=== PATIENT | male | born 1940 | race Caucasian/White ===

== ENCOUNTER 2017-02-24 10:17 | Day surgery (SDC) | payer MEDICARE ==
--- NOTE | 2017-02-05 07:03 | HP ---
AMENDED REPORT NOW INCLUDES COSIGNER DESIGNATION - ESIGNED BEFORE ADJUSTMENT CC: Dr. Caitlyn Gao; Dr. Jemal Beauchamp * ADMISSION HISTORY AND PHYSICAL: DATE OF ADMISSION: 02/24/17 ATTENDING SURGEON: Dr. Chris Mcnamara * (DICTATED BY DANIEL MARAVILLA) CHIEF COMPLAINT: Right inguinal hernia. HISTORY OF PRESENT ILLNESS: This is a 76-year-old male with a 4-month history of gradually increasing right groin pain and swelling. He notes increased symptoms particularly after working out and/or playing racStormpath, which he does regularly each week. He has noted some swelling. He has not had any symptoms to suggest incarceration or strangulation. He has not had any particular GI or complaints other than his baseline. He had undergone a prior open left inguinal herniorrhaphy around 2011. He was seen in the office by Dr. Mcnamara on 12/10/16, at which time exam confirmed the presence of a mildly tender reducible right inguinal hernia. No recurrence noted on the left. Dr. Mcnamara discussed with him the indications for surgery; the risks, benefits, and alternatives. I have reviewed with him the expected perioperative course. He is on Xarelto for paroxysmal atrial fibrillation. He has a mild increase in serum creatinine and therefore, his last dose of Xarelto will be on 02/22/17. He would like to proceed as scheduled with laparoscopic repair of right inguinal hernia with mesh. PAST MEDICAL HISTORY: Hypertension, paroxysmal atrial fibrillation, lumbar spinal stenosis. He has had one or more episodes of syncope related to increased vagal tone, related to constipation. He has had no recent events. He does see Dr. Trevino periodically, most recent visit in July of this year. PAST SURGICAL HISTORY: Previous surgeries include left hip replacement and right knee replacement. The hip replacement was complicated by postoperative dislocation as well as the aforementioned syncopal episode. CURRENT MEDICATIONS: 1. Xarelto 20 mg once daily (last dose 02/22/17). 2. Cardizem 30 mg 2 tablets q.a.m., 1 tablet q.p.m. 3. Lisinopril 10 mg daily. 4. Vitamin B12 1000 mcg daily. 5. Extra strength Tylenol p.r.n. 6. stool softener as needed DRUG ALLERGIES: None known. FAMILY HISTORY: Negative for anesthesia problems, bleeding, or clotting disorder. SOCIAL HISTORY: The patient lives with his partner. He is a retired teacher. He continues to smoke 2 to 3 cigarettes per day and also uses nicotine gum. He is not interested in quitting at the present time. 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 He denies other recreational drug use. REVIEW OF SYSTEMS: General: No recent constitutional symptoms or acute illnesses. His weight has been relatively stable. Cardiovascular: He does note palpitations when he is in AFib, sometimes with tachycardia. This typically occurs in the evenings. No other new problems to report. No history of SC or angina. Respiratory: Smoking history as noted. No chronic cough or shortness of breath. GI: No problems reported. His last colonoscopy was approximately 10 years ago. He has discussed colorectal cancer screening with his PCP. : He sees Dr. Beauchamp once yearly. He does have some prostate enlargement and nocturia. Mild elevation in serum creatinine on recent measure with GFR estimated at around 49. Endocrine: No diabetes or thyroid dysfunction. PHYSICAL EXAMINATION GENERAL: Well-nourished, mildly obese male, in no acute distress. VITAL SIGNS: Height 5 feet 9 inches, weight 190, blood pressure 130/80, pulse 68, respirations 18. HEENT: Pupils are equal, round, and reactive. EOMs intact. No conjunctival pallor. Oropharynx: Teeth in good repair. No intraoral lesions. NECK: No lymphadenopathy, thyromegaly, or masses. LUNGS: Clear to auscultation. No rales or wheezes. HEART: Regular rate and rhythm. No murmur appreciated. ABDOMEN: Soft, nontender to palpation. No palpable masses or organomegaly other than the right groin hernia as per Dr. Mcnamara' exam. RECTAL: Not done. BACK: No spinous process or CVA tenderness. EXTREMITIES: No edema. NEUROLOGICAL: Grossly intact. SKIN: Warm and dry. No suspicious rashes or lesions noted. IMPRESSION: Right inguinal hernia. PLAN: Laparoscopic repair of right inguinal hernia with mesh. DANIEL MARAVILLA [id number]/[facility] #: [id number] [facility] CENTERJass
[~2017-02-24 10:17] MED LIST: Acetaminophen TAB* 325 MG PO ONE; Buffered Lidocaine 0.9% SYRIN* 5 ML/SYR SYRINGE INTRADERM ONE; Dexamethasone IV* 4 MG/ML 1 ML (4 MG) IV SLOW PU ONE; Famotidine IV* 10 MG/ML 2 ML (20 mg) IV ONE
[2017-02-24] MEDS ORDERED: Dexamethasone IV* 4 MG/ML 1 ML (4 MG) ONE (10:26)
[2017-02-24] MEDS ORDERED: Famotidine IV* 10 MG/ML 2 ML (20 mg) ONE (10:26)
[2017-02-24] MEDS ORDERED: ceFAZolin 2 GM PREMIX (*) 2 GM/50 ML BAG IVPB ONE (10:27)
[2017-02-24] MEDS ORDERED: Buffered Lidocaine 0.9% SYRIN* 5 ML/SYR SYRINGE ONE (10:27)
[2017-02-24] MEDS ORDERED: Acetaminophen TAB* 325 MG ONE (10:27)
[2017-02-24] MEDS ORDERED: Propofol* 10 MG/ML 20 ML BTL IV PUSH ONE (11:49)
[2017-02-24] MEDS ORDERED: Midazolam* 1 MG/ML 2 ML VIAL (2 MG) ONE (11:49)
[2017-02-24] MEDS ORDERED: fentaNYL* 50 MCG/ML 2 ML VIAL (100 MCG VIAL) ONE (11:49)
[2017-02-24] MEDS ORDERED: Cisatracurium* 2 MG/ML MDV 5 ML ONE (11:52)
[2017-02-24] MEDS ORDERED: Ondansetron INJ* 2 MG/ML VIAL ONE (13:22)
[2017-02-24] MEDS ORDERED: EPHEDrine (Pressors)* 50 MG/ML VIAL ONE (13:22)
[2017-02-24] MEDS ORDERED: Phenylephrine IV* 40 MCG/ML 10 ML SYRINGE ONE (13:22)
[2017-02-24] MEDS ORDERED: Ketorolac INJ* 30 MG/ML 1 ML VIAL ONE (13:22)
[2017-02-24] MEDS ORDERED: HYDROcodone/ACETAMIN 5-325 MG* 1 TAB PO PRN (13:28)
[2017-02-24] MEDS ORDERED: HYDROmorphone INJ* 1 MG/ML CARPUJECT SYRINGE IV PRN (13:28)
[2017-02-24] MEDS ORDERED: Ondansetron INJ* 2 MG/ML VIAL IV PRN (13:28)
[2017-02-24] MEDS ORDERED: fentaNYL* 50 MCG/ML 2 ML VIAL (100 MCG VIAL) IV PRN (13:28)
[2017-02-24] MEDS ORDERED: Scopolamine 1.5 mg* PATCH TRANSDERM PRN (13:28)
[2017-02-24] MEDS ORDERED: oxyCODONE TAB* 5 MG TAB PO PRN (13:28)
[2017-02-24] MEDS ORDERED: Glycopyrrolate IV* 0.2 MG/ML 1 ML VIAL ONE ×2 (13:37→13:38)
[2017-02-24] MEDS ORDERED: Neostigmine Methylsulfate* 2 MG/2 ML SYRINGE ONE (13:38)
[2017-02-24] MEDS ORDERED: oxyCODONE/Acetamin 5/325 MG* TAB PO PRN (14:21)
[2017-02-24 16:55] VITALS: BP 136/74
--- NOTE | 2017-02-25 05:56 | OP ---
CC: Caitlyn Gao MD * DATE OF OPERATION: 02/24/17 - [facility] DATE OF : 44 SURGEON: Chris Mcnamara MD HOME SERVICE CONSULTANT: DANIEL Key ANESTHESIOLOGIST: Sharmila Mejia MD ANESTHESIA: General endotracheal. PRE-OP DIAGNOSIS: Right inguinal hernia. POST-OP DIAGNOSIS: Right inguinal hernia. OPERATIVE PROCEDURE: Laparoscopic preperitoneal repair of right inguinal hernia with mesh. ESTIMATED BLOOD LOSS: Minimal. IV FLUIDS: Crystalloids. SPECIMENS: None. DRAINS: None. COMPLICATIONS: None. COUNTS: The instrument, needle, and sponge counts were correct. DESCRIPTION OF PROCEDURE: The patient was brought to the operating room and placed on the table supine. Sequential compression devices were placed on both lower extremities. General anesthesia was administered. A Saenz catheter was placed. He was prepped and draped in the usual sterile fashion and received appropriate intravenous antibiotics. Time-out was performed. Local anesthetic was infiltrated to the skin and soft tissue prior to making each incision. A curvilinear infraumbilical incision was created and the subcutaneous tissues were divided. The anterior rectus fascia was identified and incised transversely to the right of midline and the underlying rectus muscles were identified, retracted laterally, and then a preperitoneal balloon dissector was positioned down to the pubic symphysis. Under direct visualization, insufflation was performed and then the balloon was removed and replaced with a 12-mm blunt port. Two 5-mm trocars were placed in the lower midline of the abdomen. Dissection proceeded from the midline laterally identifying the pubic tubercle, Jf's ligament, and a direct inguinal hernia which was reduced of fat containing within it. Inferior epigastric vessels were identified and preserved anteriorly. The spermatic cord was inspected and there did not appear to be an indirect inguinal hernia. The dissection proceeded laterally to the anterior superior iliac spine. The reflection of the peritoneum was dissected free off the cord structures. There was a small rent made in this which was subsequently repaired with endoscopic clip placement. After completing the dissection, a laparoscopic ProGrip was positioned into the preperitoneal space after having been cut to the appropriate size. The mesh was positioned to cover direct, indirect, and femoral spaces, and no fixation was utilized. After confirming good position of the mesh, the space was desufflated under visualization and ports removed. Umbilical site was closed with 0 Vicryl to approximate the fascia. Skin was closed with 4-0 Monocryl and Steri-Strips applied. The patient tolerated the procedure well, was extubated, and transferred to the recovery room in stable condition. [id number]/[facility] #: [id number] MTDD
[2017-02-27] MEDS ORDERED: Scopolamine PATCH Remove* 1 NOTE MISC PATCH OFF ONE (13:29)
== END 2017-02-24 16:30 | disposition home or self-care (01) ==
LOC: OR 10:17
PROVIDERS: ATTEND Surgery
DX: K40.90 Unilateral inguinal hernia, without obstruction or gangrene, not specified as recurrent (principal); I48.0 Paroxysmal atrial fibrillation; I10 Essential (primary) hypertension; R00.0 Tachycardia, unspecified; Z79.01 Long term (current) use of anticoagulants; F17.210 Nicotine dependence, cigarettes, uncomplicated; E29.1 Testicular hypofunction; F10.21 Alcohol dependence, in remission
CPT/HCPCS: A9270-GY; J0690; J1100; J1885; J2250; J2405; J2704; J3010

== ENCOUNTER 2019-04-18 12:13 | Emergency (ER) | payer MEDICARE ==
[2019-04-18] MEDS ORDERED: Diltiazem TAB* 30 MG PO ONE (15:42)
--- NOTE | 2019-04-18 15:44 | ED ---
Palpitations / Dysrhythmia - HPI Summary HPI Summary: This pt is a 78 Y/O M presenting to [facility] with a CC of atrial fibrillation that started on 04/16/2019 and has been present since. patient had an ablation one and a half years ago, and stopped his Xarelto 6 months ago. He takes diltiazem daily but stopped taking over the weekend (Sat) when he noticed low BP. At home his HR was at 140 BPM and has since decreased to 96 BPM. He initially reported lightheadedness while standing, which resolved. He denies any fevers, chills, N/ V, abdominal pain, CP, and headaches. He states that he has no known aggravating or alleviating factor. He states that he has a PMHx of AFIB, CAD, and HTN. - History of Current Complaint Chief Complaint: EDDysrhythmPalp Time Seen by Provider: 04/18/19 15:16 Hx Obtained From: Patient Onset/Duration: Sudden Onset, Lasting Days - 3, Still Present Timing: Constant Severity Initially: Severe Severity Currently: Mild Character: Fast, Irregular Aggravating: Nothing Alleviating: Nothing Associated Signs & Symptoms: Negative - fevers, chills, N/V, abdominal pain, CP , and headaches, Dizzy - Allergy/Home Medications Allergies/Adverse Reactions: Allergies Allergy/AdvReac Type Severity Reaction Status Date / Time No Known Allergies Allergy Verified 04/18/19 12:17 Home Medications: Home Medications Acetaminophen [Acetaminophen Extra Strength] 500 - 1,000 mg PO BEDTIME 04/18/19 [History Confirmed 04/18/19] Lisinopril TAB* [Prinivil TAB*] 10 mg PO DAILY 04/18/19 [History Confirmed 04/18] dilTIAZem HCl [Cardizem] 30 mg PO QPM 04/18/19 [History Confirmed 04/18/19] dilTIAZem HCl [Cardizem] 60 mg PO QAM 04/18/19 [History Confirmed 04/18/19] PMH/Surg Hx/FS Hx/Imm Hx Previously Healthy: Yes Endocrine/Hematology History: Denies: Hx Diabetes, Hx Thyroid Disease Cardiovascular History: Reports: Hx Coronary Artery Disease, Hx Hypertension - ON MEDS, Other Cardiovascular Problems/Disorders - tachycardia and palpitations happen usually in evening Denies: Hx Pacemaker/ICD Respiratory History: Denies: Hx Asthma, Hx Chronic Obstructive Pulmonary Disease (COPD) GI History: Reports: Other GI Disorders - inguinal hernia Denies: Hx Ulcer Musculoskeletal History: Reports: Hx Arthritis, Other Musculoskeletal History - spinal stenosis - lumbar/caudal area Sensory History: Reports: Hx Cataracts - beginning of, Hx Contacts or Glasses, Hx Hearing Aid - WILL REMOVE Opthamlomology History: Reports: Hx Cataracts - beginning of, Hx Contacts or Glasses Neurological History: Reports: 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 HERNIA REPAIR X 2, AT [facility] [place]. 11/12/17 HEART ABLATION, SWELLING. RT KNEE REPLACEMENT Hx Anesthesia Reactions: No - Immunization History Immunizations Up to Date: Yes Infectious Disease History: No Infectious Disease History: Denies: Hx Hepatitis, Hx Human Immunodeficiency Virus (HIV), Traveled Outside the [place] in Last 30 Days - Family History Known Family History: Negative: Diabetes, Seizure Disorder - Social History Occupation: Retired Lives: Alone Alcohol Use: None Hx Substance Use: No Substance Use Type: Reports: None Hx Tobacco Use: Yes Smoking Status (MU): Light Every Day Tobacco Smoker Amount Used/How Often: 2-3 CIGARETTES A DAY Review of Systems Positive: Other - POSITIVE: dizzy . Negative: Fever, Chills Positive: Palpitations - states irregularly irregular and fast . Negative: Chest Pain Negative: Shortness Of Breath Negative: Vomiting, Nausea Negative: Headache All Other Systems Reviewed And Are Negative: Yes Physical Exam - Summary Physical Exam Summary: Constitutional: Well-developed, Well-nourished, Alert. (-) Distressed Skin: Warm, Dry HENT: Normocephalic; Atraumatic Eyes: Conjunctiva normal Neck: Musculoskeletal ROM normal neck. (-) JVD, (-) Stridor, (-) Nuchal rigidity Cardio: Irregularly irregular tachycardic Heart sounds normal; Intact distal pulses; Radial pulses are 2+ and symmetric. (-) Murmur Pulmonary/Chest wall: Effort normal. (-) Respiratory distress, (-) Wheezes, (-) Rales Abd: Soft, (-) tenderness, (-) Distension, (-) Guarding, (-) Rebound Musculoskeletal: (-) Edema Neuro: Alert, Oriented x3 Psych: Mood and affect Normal Triage Information Reviewed: Yes Vital Signs On Initial Exam: Initial Vitals Temp Pulse Resp BP Pulse Ox 97.1 F 91 16 143/89 99 04/18/19 12:14 04/18/19 12:14 04/18/19 12:14 04/18/19 12:14 04/18/19 12:14 Vital Signs Reviewed: Yes Procedures - Sedation Patient Received Moderate/Deep Sedation with Procedure: No Diagnostics - Vital Signs Vital Signs Temp Pulse Resp BP Pulse Ox 04/18/19 15:22 86 20 148/120 100 04/18/19 15:19 27 04/18/19 14:11 97.3 F 87 15 139/74 100 04/18/19 12:14 97.1 F 91 16 143/89 99 - Laboratory Result Diagrams: 04/18/19 16:02 04/18/19 16:02 Lab Statement: Any lab studies that have been ordered have been reviewed, and results considered in the medical decision making process. - EKG 1535 Cardiac Rate: Tachycardia - 102 BPM EKG Rhythm: Atrial Fibrillation ST Segment: Normal Ectopy: None Summary of EKG Findings: An EKG at 1535 reveals normal Afib 102, nml axis, nml intervals. No STEMI. No acute changes. Dr. Ash interpreted this report at 1536 04/18/2019 Course/Dx - Course Course Of Treatment: 78-year-old male with a known history of paroxysmal A. fib status post ablation 1 year ago, hypertension on diltiazem presenting with A. fib. - vital signs notable for heart rate in the low 90s, irregularly irregular. EKG confirms atrial fibrillation. - Patient has known history of A. fib, did not take diltiazem likely contributed to recent A. fib with RVR at home. Patient was given 30 mg of diltiazem here. Electrolytes with magnesium 1.9, potassium 4.2. Patient was started back on Xarelto 20 mg. Advised to continue taking diltiazem, and follow-up with cardiology. - patient has no chest pain, troponin normal. - Diagnoses Provider Diagnoses: Afib Discharge ED - Sign-Out/Discharge Documenting (check all that apply): Patient Departure - discharge - Discharge Plan Condition: Stable Disposition: HOME Prescriptions: Rivaroxaban TAB(*) [Xarelto 20 mg] 20 mg PO DAILY 30 Days #30 tab Patient Education Materials: A-fib (Atrial Fibrillation) (ED) Referrals: Caitlyn Gao MD [Primary Care Provider] - 2 Days Malcom Trevino MD [Medical Doctor] - 2 Days Additional Instructions: You were seen in the emergency department for atrial fibrillation We discussed your case with cardiology, please continue your diltiazem. Please take Xarelto 20 mg daily. Please follow up with your primary care doctor in next 2-3 days and return to emergency department for chest pain, trouble breathing, passing out, worsening or concerning symptoms. It was a pleasure taking care of you today. - Billing Disposition and Condition Condition: STABLE Disposition: Home - Attestation Statements Document Initiated by Perla: Yes Documenting Scribe: Richie Abbott Provider For Whom Perla is Documenting (Include Credential): Tayla Ash MD Scribe Attestation: IRichie, scribed for Tayla Ash MD on 04/18/19 at 1653. Scribe Documentation Reviewed: Yes Provider Attestation: The documentation as recorded by the Richie power accurately reflects the service I personally performed and the decisions made by , Tayla Ash MD Status of Scribe Document: Viewed
[2019-04-18 16:24] LABS: INR 0.93 (0.82-1.09)
[2019-04-18 16:32] LABS: Albumin 4.4 g/dL (3.2-5.2); Calcium 8.5 mg/dL (8.6-10.3); Magnesium 1.9 mg/dL (1.9-2.7); Potassium 4.2 mmol/L (3.5-5.0); Total Bilirubin 0.6 mg/dL (0.2-1.0)
[2019-04-18 16:36] LABS: Troponin I 0.01 ng/mL (<0.03)
[2019-04-18 16:38] LABS: Albumin/Globulin Ratio 1.6 (1-3); BUN/Creatinine Ratio 18.3 (8-20); EGFR African American 64.4 (>60); EGFR Non-African American 53.2 (>60); Globulin 2.8 g/dL (2-4); Total Protein 7.2 g/dL (6.4-8.9)
[2019-04-18 16:39] LABS: ABS Basophils 0.1 10^3/ul (0-0.2); ABS Eosinophils 0.3 10^3/ul (0-0.6); ABS Monocytes 0.4 10^3/ul (0-0.8); ABS Neutrophils 3.3 10^3/ul (1.5-7.7); Eosinophil % 4.1 %; Hematocrit 42 % (42-52); Hemoglobin 14.4 g/dL (14.0-18.0); Lymphocyte % 42.7 %; Mean Corpuscular HGB Conc 34 g/dL (31-36); Mean Corpuscular Hemoglobin 33 pg (27-31); Mean Corpuscular Volume 96 fL (80-94); Mean Platelet Volume 7.5 fL (7.4-10.4); Platelet Count 249 10^3/uL (150-450); Red Blood Count 4.39 10^6 /uL (4.18-5.48); Red Cell Distribution Width 13 % (10-15); White Blood Count 7.1 10^3/uL (3.5-10.8)
[2019-04-18 16:42] VITALS: BP 155/96
[2019-04-18 17:17] LABS: TSH (Thyroid Stimulating Horm) 0.82 mcIU/mL (0.34-5.60)
== END 2019-04-18 16:47 | disposition home or self-care (01) ==
LOC: ED 12:13
DX: I48.0 Paroxysmal atrial fibrillation (principal); I25.10 Atherosclerotic heart disease of native coronary artery without angina pectoris; I10 Essential (primary) hypertension; Z79.899 Other long term (current) drug therapy; F17.210 Nicotine dependence, cigarettes, uncomplicated; R00.2 Palpitations
CPT/HCPCS: 36415; 80053; 83735; 84443; 84484; 85025; 85610; 93005; 99283; A9270-GY

== ENCOUNTER 2019-07-19 13:21 | Emergency (ER) | payer MEDICARE ==
--- NOTE | 2019-07-19 13:24 | UC ---
Skin Complaint HPI - HPI Summary HPI Summary: 78 yo male presents for suture removal. He tells me that he had a punch biopsy from dermatology about 10-12 days ago and was told to have the stitches out "around this time". He is here today for removal. No fever, pain, redness, drainage. States he thinks "1 or 2 stitches". - History of Current Complaint Time Seen by Provider: 07/19/19 13:23 Stated Complaint: SUTURE REMOVAL Hx Obtained From: Patient Current Severity: None - Allergy/Home Medications Allergies/Adverse Reactions: Allergies Allergy/AdvReac Type Severity Reaction Status Date / Time No Known Allergies Allergy Verified 07/19/19 13:30 Home Medications: Home Medications Cyanocobalamin TAB* [Vitamin B12 TAB*] 1,000 mcg PO QAM 10/13/13 [History Confirmed 07/19/19] Acetaminophen [Acetaminophen Extra Strength] 500 - 1,000 mg PO BEDTIME 04/18/19 [History Confirmed 07/19/19] Lisinopril TAB* [Prinivil TAB*] 5 mg PO DAILY 04/18/19 [History Confirmed ] dilTIAZem HCl [Cardizem] 30 mg PO QPM 04/18/19 [History Confirmed 07/19/19] dilTIAZem HCl [Cardizem] 60 mg PO QAM 04/18/19 [History Confirmed 07/19/19] Cholecalciferol (Vitamin D3) [Vitamin D3] 1 tab PO DAILY 07/19/19 [History Confirmed 07/19/19] Rivaroxaban TAB(*) [Xarelto 20 mg] 20 mg PO DAILY 07/19/19 [History Confirmed ] PMH/Surg Hx/FS Hx/Imm Hx Cardiovascular History: Hypertension, Atrial Fibrillation - Surgical History Surgical History: Yes Surgery Procedure, Year, and Place: LT H[place] REPLACEMENT[place] [facility] [place] HEART ABLATION, SWELLING. RT KNEE REPLACEMENT - Family History Known Family History: Negative: Diabetes, Seizure Disorder - Social History Alcohol Use: None Substance Use Type: None Smoking Status (MU): Light Every Day Tobacco Smoker Amount Used/How Often: 2-3 CIGARETTES A DAY Review of Systems All Other Systems Reviewed And Are Negative: No Constitutional: Positive: Negative Skin: Positive: Other - Suture removal left leg Respiratory: Positive: Negative Cardiovascular: Positive: Negative Neurovascular: Positive: Negative Neurological/Mental Status: Positive: Negative Physical Exam - Summary Physical Exam Summary: GENERAL: NAD. WDWN. No pain distress. SKIN: LEFT THIGH: Lateral distal aspect with one suture in place. Healed well. No erythema, drainage, tenderness, edema. CHEST: No accessory muscle use. Breathing comfortably and in no distress. NEURO: Alert. PSYCH: Age appropriate behavior. Triage Information Reviewed: Yes Vital Signs: Vital Signs: Temp Pulse Resp BP Pulse Ox 98.4 F 67 18 143/82 97 07/19/19 13:27 07/19/19 13:27 07/19/19 13:27 07/19/19 13:27 07/19/19 13:27 Vital Signs Reviewed: Yes Course/Dx - Course Course Of Treatment: One suture removed without difficulty. Band-aid applied. Advised to change band-aid daily until well healed - Diagnoses Provider Diagnosis: Visit for suture removal Discharge ED - Sign-Out/Discharge Documenting (check all that apply): Patient Departure All imaging exams completed and their final reports reviewed: No Studies - Discharge Plan Condition: Stable Disposition: HOME Patient Education Materials: Stitches Removal (ED) Referrals: Caitlyn Gao MD [Primary Care Provider] - - Billing Disposition and Condition Condition: STABLE Disposition: Home
--- OUTSIDE RECORDS SUMMARY | 2019-07-19 13:28 | XMS REPORT | Continuity of Care Document ---
:1940 External Reference #:[id number] Author Name Raul Aaron MD (transmitted by agent of provider July) Address [address] , [place] [address] Care Team Providers Name Role Phone Caitlyn Gao MD - Internal Medicine Care Team Information Inside Sales Advertising Executive [phone] Problems Active Problems Provider Date Tachycardia Malcom Trevino M.D. Onset: 04/15/2011 Palpitations Malcom Trevino M.D. Onset: 04/15/2011 Benign essential hypertension Malcom Trevino M.D. Onset: 04/15/2011 Essential hypertension Malcom Trevino M.D. Onset: 09/19/2015 Social History Type Date Description Comments Sex Unknown Tobacco Use Start: Unknown Patient is a current cigarette smoker, smokes every day Smoking Status Reviewed: 04/21/19 Patient is a current cigarette smoker, smokes every day ETOH Use Has consumed alcohol in has been sober the past since 1992 Tobacco Use Start: Unknown Patient is a current 1-2 cigs/day smoker, smokes every day Recreational Drug Use Denies Drug Use Exercise Type/Frequency Exercises regularly racquet ball 2-3 days per week at the [facility] [place]. Allergies, Adverse Reactions, Alerts Description No Known Drug Allergies Medications Active Medications SIG Qnty Indications Ordering Date Provider Cardirobert 2 by mouth in 270tabs Malcom Lu 10/04/2015 30mg Tablets the morning and Shola Trevino one by mouth at night Xarelto 1 by mouth every 90tabs Valerie Ortiz, 10/04/2015 20mg Tablets day N.P. Lisinopril 1/2 tab po daily 90tabs Unknown 10mg Tablets Vitamin B-12 1 by mouth every Unknown 1000mcg day Tablets Acetaminophen 1-2 tabs 3x a Unknown 500mg day as needed Tablets Vitamin D-3 1 by mouth every Unknown 1000Unit day (winter) Tramadol HCL 1 tablet po Caitlyn Gao, 50mg Tablets daily as needed Immunizations Description No Information Available Vital Signs Date Vital Result Comment 04/21/2019 10:45am Height 69 inches 5'9" Weight 196.38 lb with shoes Heart Rate 72 /min left radial BP Systolic Sitting 110 mmHg Lue, reg cuff BP Diastolic Sitting 68 mmHg Lue, reg cuff BP Systolic Standing 112 mmHg Lue, reg cuff BP Diastolic Standing 66 mmHg Lue, reg cuff BMI (Body Mass Index) 29.0 kg/m2 Ejection Fraction 55%-60% echocardiogram 11/18/17 01/25/2019 10:44am Height 69 inches 5'9" Weight 190.38 lb no xhodx Heart Rate 68 /min left radial regular BP Systolic Sitting 124 mmHg ule reg cuff BP Diastolic Sitting 78 mmHg ule reg cuff BP Systolic Standing 118 mmHg ule reg cuff BP Diastolic Standing 72 mmHg ule reg cuff BMI (Body Mass Index) 28.1 kg/m2 Ejection Fraction 55-60% Echo 11/18/17 Results Description No Information Available Procedures Date Code Description Status 07/12/2019 59467 Punch Biopsy Of Skin Completed 04/21/2019 84674 EKG Tracing & Interpretation Completed 01/28/2019 86395 Holter Monitor Review (24 hr)dr review & interp only Completed 01/27/2019 72897 ECG Monitor/Recording W/Visual Superimposition Scanning Completed 01/25/2019 68865 EKG Tracing & Interpretation Completed Medical Devices Description No Information Available Encounters Type Date Location Provider Dx Diagnosis Office Visit 06/01/2019 [facility] Sue Martinez, L82.1 Other seborrheic 11:30a keratosis D22.5 Melanocytic nevi of trunk L72.8 Other follicular cysts of the skin and subcutaneous tissue L85.3 Xerosis cutis Office Visit 04/21/2019 11:00a [facility] Valerie S. I48.0 Paroxysmal atrial Foster, N.P. fibrillation I10 Essential (primary) hypertension R00.2 Palpitations F17.210 Nicotine dependence, cigarettes, uncomplicated Office Visit 01/25/2019 11:00a [facility] Malcom Lu I10 Essential Shola Trevino (primary) hypertension R00.2 Palpitations F17.210 Nicotine dependence, cigarettes, uncomplicated I48.0 Paroxysmal atrial fibrillation I44.0 Atrioventricular block, first degree Assessments Date Code Description Provider 07/12/2019 L30.9 Dermatitis, unspecified Sue Martinez MD 07/12/2019 L30.9 Dermatitis, unspecified Raul Aaron MD 06/01/2019 L82.1 Other seborrheic keratosis Sue Martinez MD 06/01/2019 D22.5 Melanocytic nevi of trunk Sue Martinez MD 06/01/2019 L72.8 Other follicular cysts of the skin and Sue Martinez MD subcutaneous tissue 06/01/2019 L85.3 Xerosis cutis Sue Martinez MD 04/21/2019 I48.0 Paroxysmal atrial fibrillation Malcom Trevino M.D. 04/21/2019 I48.0 Paroxysmal atrial fibrillation Valerie Ortiz, N.P. 04/21/2019 I10 Essential (primary) hypertension Valerie Ortiz, N.P. 04/21/2019 R00.2 Palpitations Valerie Ortiz, N.P. 04/21/2019 F17.210 Nicotine dependence, cigarettes, Valerie Ortiz, N.P. uncomplicated 01/28/2019 I48.0 Paroxysmal atrial fibrillation Malcom Trevino M.D. 01/27/2019 I48.0 Paroxysmal atrial fibrillation Nurse Visit cc 01/25/2019 I10 Essential (primary) hypertension Malcom Trevino M.D. 01/25/2019 R00.2 Palpitations Malcom Trevino M.D. 01/25/2019 F17.210 Nicotine dependence, cigarettes, Malcom Trevino M.D. uncomplicated 01/25/2019 I48.0 Paroxysmal atrial fibrillation Malcom Trevino M.D. 01/25/2019 I44.0 Atrioventricular block, first degree Qutaybeh S. Maghaydah , M.D. Plan of Treatment Future Appointment(s):06/05/2020 1:30 pm - Sue Martinez MD at [facility] Wcgkxpgnazc03/16/2020 - Olimpia HrebertPDeonI48.0 Paroxysmal atrial fibrillationRecommendations:Option of rhythm detection are Kardia by [employer] to check your rhythm.I10 Essential (primary) hypertensionFollow up:11/2019 OV QSMRecommendations:Decrease Lisinopril to 1/2 (10mg) daily Check BP and if top number consistently > 145 Check in with us in 2-3 weeks to let us know what BPs are.R00.2 ZtrccozycpicX40.210 Nicotine dependence, cigarettes, uncomplicated Functional Status Description No Information Available Mental Status Description No Information Available Referrals Description No Information Available
[2019-07-19 13:35] VITALS: BP 143/82
== END 2019-07-19 13:48 | disposition home or self-care (01) ==
LOC: UCEAST 13:21
DX: Z48.1 Encounter for planned postprocedural wound closure (principal); I10 Essential (primary) hypertension; I48.91 Unspecified atrial fibrillation; Z79.01 Long term (current) use of anticoagulants; Z79.899 Other long term (current) drug therapy; Z96.642 Presence of left artificial hip joint; Z96.651 Presence of right artificial knee joint; F17.210 Nicotine dependence, cigarettes, uncomplicated
CPT/HCPCS: 99211; G0463